=== PATIENT | female | born 2000 | race American Indian/Alaskan Native ===

== ENCOUNTER 2021-08-21 14:07 | Emergency (ER) | payer SELFPAY ==
--- NOTE | 2021-08-21 15:20 | Emergency Department Report ---
ED General Adult HPI - General Chief complaint: Abdominal Pain Stated complaint: ABD PAINS 2 MOS PREG Time Seen by Provider: 08/21/21 14:40 Source: patient, EMS Mode of arrival: Ambulatory Limitations: No Limitations - History of Present Illness Initial comments: 21-year-old -[place] female patient presents with complaints of sudden onset of stabbing lower abdominal pain starting approximately 1 hour ago. Patient reports she is 8 weeks . Her first [facility] appointment is this coming Tuesday. She denies any nausea/vomiting, diarrhea, constipation, dysuria/hematuria/urinary frequency, vaginal discharge/dyspareunia, or vaginal bleeding. She rates her current pain as a 6/10 in severity. She is A0. No prior medical history per patient. Severity scale (0 -10): 4 - Related Data Previous Rx's Medication Instructions Recorded Last Taken Type Ibuprofen [Motrin 800 MG tab] 800 mg PO Q8HR PRN #15 tablet 08/21/21 Unknown Rx Allergies Allergy/AdvReac Type Severity Reaction Status Date / Time No Known Allergies Allergy Unverified 08/21/21 14:12 ED Review of Systems ROS: Stated complaint: ABD PAINS 2 MOS PREG Other details as noted in HPI Constitutional: denies: chills, diaphoresis, fever, malaise Respiratory: denies: shortness of breath Cardiovascular: denies: chest pain Gastrointestinal: abdominal pain. denies: nausea, vomiting, diarrhea, constipation Genitourinary: denies: urgency, dysuria, frequency, hematuria, discharge, abnormal menses, dyspareunia Musculoskeletal: denies: back pain Skin: denies: lesions, change in color Hematological/Lymphatic: denies: swollen glands ED Past Medical Hx - Past Medical History Previous Medical History?: No - Surgical History Past Surgical History?: No - Social History Smoking Status: Unknown if ever smoked - Medications Home Medications: Home Medications Medication Instructions Recorded Confirmed Last Taken Type Ibuprofen [Motrin 800 MG tab] 800 mg PO Q8HR PRN #15 tablet 08/21/21 Unknown Rx ED Physical Exam - General Limitations: No Limitations General appearance: alert, in no apparent distress - Head Head exam: Present: atraumatic, normocephalic - Eye Eye exam: Present: normal appearance. Absent: scleral icterus - Respiratory Respiratory exam: Absent: respiratory distress - Cardiovascular Cardiovascular Exam: Present: regular rate, normal rhythm - GI/Abdominal GI/Abdominal exam: Present: soft, tenderness (Mild suprapubic), normal bowel sounds. Absent: distended, guarding, rebound, rigid - Neurological Exam Neurological exam: Present: alert, oriented X3, normal gait - Psychiatric Psychiatric exam: Present: normal affect, normal mood - Skin Skin exam: Present: warm, dry, intact, normal color. Absent: rash ED Course Vital Signs 08/21/21 08/21/21 08/21/21 14:09 14:11 19:12 Temperature 98.6 F Pulse Rate 74 74 66 Respiratory 16 18 18 Rate Blood Pressure 140/76 Blood Pressure 140/76 125/77 [Left] O2 Sat by Pulse 97 97 98 Oximetry ED Medical Decision Making - Lab Data Result diagrams: 08/21/21 16:09 08/21/21 16:09 - Radiology Data Radiology results: report reviewed ULTRASOUND OBSTETRIC INDICATION / CLINICAL INFORMATION: pain, 8 weeks . TECHNIQUE: Transabdominal and Transvaginal. COMPARISON: None available. FINDINGS: GESTATIONAL SAC: None visualized YOLK SAC: None visualized EMBRYO/FETUS: No IUP visualized. Slightly thickened endometrial stripe measurin g 12 mm ADNEXA: Right ovary within normal limits. 1.5 cm left ovarian follicular cyst FREE FLUID: Small amount of free pelvic fluid ADDITIONAL FINDINGS: None. IMPRESSION: 1. Slightly thickened endometrial stripe. 2. No visualized IUP. Follow-up beta-hCG and ultrasound recommended 3. Small 1.5 cm left ovarian cyst and trace amount of free pelvic fluid - Medical Decision Making 21-year-old -[place] female patient presents with complaints of sudden onset of stabbing lower abdominal pain starting approximately 1 hour ago. Patient reports she is 8 weeks . Her first [facility] appointment is this coming Tuesday. She denies any nausea/vomiting, diarrhea, constipation, dysuria/hematuria/urinary frequency, vaginal discharge/dyspareunia, or vaginal bleeding. She rates her current pain as a 6/10 in severity. She is A0. No prior medical history per patient. No abdominal tenderness to palpation noted on exam. hCG is negative. Labs are WNL. Ultrasound is negative for IUP, however shows small ovarian cyst trace esha e pelvic fluid-patient denies STI symptoms. She is well-appearing, her vitals are normal, she is stable for discharge home. Patient to follow-up with PCP or [facility] in 3 days as scheduled. Strict return precautions were discussed in detail patient verbalizes understanding Critical care attestation.: If time is entered above; I have spent that time in minutes in the direct care of this critically ill patient, excluding procedure time. ED Disposition Clinical Impression: Acute bilateral lower abdominal pain Disposition: HOME / SELF CARE / HOMELESS Is pt being admited?: No Condition: Stable Instructions: Abdominal Pain, Adult, [id number], Abdominal Pain (ED) Prescriptions: Ibuprofen [Motrin 800 MG tab] 800 mg PO Q8HR PRN #15 tablet PRN Reason: pain Referrals: PRIMARY CARE, [Primary Care Provider] - 3-5 Days [facility] [Provider Group] - 3-5 Days Forms: Work/School Release Form(ED)
[2021-08-21 16:06] LABS: Bacteria,Urine 4+ /HPF (Negative); Bilirubin,Urine NEG (Negative); Blood,Urine NEG (Negative); Color,Urine Yellow (Yellow); Mucus,Urine FEW /HPF; Protein,Urine <15 mg/dL mg/dL (Negative); Urobilinogen,Urine < 2.0 mg/dL (<2.0)
[2021-08-21 16:49] LABS: Alanine Aminotransferase 11 units/L (7-56); Albumin 4.1 g/dL (3.9-5); BUN/Creatinine Ratio 14; Blood Urea Nitrogen 11 mg/dL (7-17); Calcium 9.1 mg/dL (8.4-10.2); Hemolysis Index 7
--- NOTE | 2021-08-21 18:25 | Ultrasound Report ---
ULTRASOUND OBSTETRIC INDICATION / CLINICAL INFORMATION: pain, 8 weeks . TECHNIQUE: Transabdominal and Transvaginal. COMPARISON: None available. FINDINGS: GESTATIONAL SAC: None visualized YOLK SAC: None visualized EMBRYO/FETUS: No IUP visualized. Slightly thickened endometrial stripe measuring 12 mm ADNEXA: Right ovary within normal limits. 1.5 cm left ovarian follicular cyst FREE FLUID: Small amount of free pelvic fluid ADDITIONAL FINDINGS: None. IMPRESSION: 1. Slightly thickened endometrial stripe. 2. No visualized IUP. Follow-up beta-hCG and ultrasound recommended 3. Small 1.5 cm left ovarian cyst and trace amount of free pelvic fluid Signer Name: Iftikhar Robles MD Signed: 08/21/2021 6:20 PM Workstation Name: [id number]
[2021-08-21 19:14] VITALS: BP 125/77
[2021-08-21 19:55] LABS: Hematocrit 38.9 % (30.3-42.9); Hemoglobin 13.2 gm/dl (10.1-14.3); Mean Corpuscular HGB Conc 34 % (30-34); Mean Corpuscular Volume 91 fl (79-97); Platelet Count 234 K/mm3 (140-440); Red Blood Count 4.29 M/mm3 (3.65-5.03); Red Cell Distribution Width 13.3 % (13.2-15.2)
[2021-08-21 21:51] LABS: Total Cells Counted 100
[2021-08-21 21:52] LABS: Platelet Estimate Consistent w Auto; RBC Morphology Normal; Toxic Granulation 2+; Toxic Vacuolation 1+
== END 2021-08-21 19:10 | disposition home or self-care (01) ==
LOC: ED 14:07
DX: O26.891 Other specified pregnancy related conditions, first trimester (principal); R10.30 Lower abdominal pain, unspecified; Z3A.08 8 weeks gestation of pregnancy
CPT/HCPCS: 36415; 76801; 76817; 80053; 81001; 84702; 85007; 85025; 99284